=== PATIENT | male | born 1945 | race Hispanic/Latino ===

== ENCOUNTER 2018-01-19 10:17 | Outpatient (CLI) | payer MEDICARE, OTHER ==
[2018-01-19 10:53] LABS: Anion Gap 11 mmol/L (10-20); BUN (Urea Nitrogen) 20 mg/dL (8.4-25.7); Calc. Creatinine Clearance 0 mL/min (70-130); Calcium 9.3 mg/dL (7.8-10.44); Carbon Dioxide 25 mmol/L (23-31); Chloride 107 mmol/L (98-107); Cholesterol 172 mg/dl (< 200 Desired); Estimated GFR-MDRD 64; Glucose 82 mg/dL (83-110); HDL Cholesterol 43 mg/dL (>60 Neg Risk); LDL Cholesterol, Calculated 114 mg/dL; Potassium 5.2 mmol/L (3.5-5.1); Sodium 138 mmol/L (136-145); Triglycerides 76 mg/dL (Less than 150)
== END 2018-01-19 10:18 | disposition home or self-care (01) ==
LOC: MADLAB 10:17
PROVIDERS: ATTEND Specialist
DX: I10 Essential (primary) hypertension (principal)
CPT/HCPCS: 36415; 80048; 80061

== ENCOUNTER 2018-07-04 08:03 | Outpatient (CLI) | payer MEDICARE, OTHER ==
--- NOTE | 2018-07-04 10:21 | ULT ---
SCROTAL ULTRASOUND WITH VASCULAR DUPLEX AND COLOR AND SPECTRAL DOPPLER IMAGING: HISTORY: A 73-year-old male with a history of scrotal pain and swelling for 6 weeks. FINDINGS: The right testis measures 4.5 x 2.9 x 3.3 cm. The left testis measures 2.4 x 2.8 x 3.0 cm. Right epididymis is borderline size and contains a 0.5 cm epididymal cyst. The left epididymis is within normal limits and contains a 0.4 cm small epididym al cyst. There are bilateral hydroceles greater on the left side. There is a small focus of altered echogenicity within the right testis containing some decreased echogenicity as well as some increase d echogenicity, the etiology of this is uncertain. This could possibly be related to residual from a n old injury or an area of prior infection. This does not have the appearance of an intratesticular mass. Vascular duplex demonstrates arterial inflow and venous outflow to both testes. No evidence for test icular torsion. IMPRESSION: Bilateral hydroceles, greater on the left side. Small epididymal cyst. No evidence for testicular t orsion. POS: POON[facility]
== END 2018-07-04 08:04 | disposition home or self-care (01) ==
LOC: MADULT 08:03
PROVIDERS: ATTEND Family Medicine
DX: N50.82 Scrotal pain (principal); N50.89 Other specified disorders of the male genital organs; N43.3 Hydrocele, unspecified; N50.3 Cyst of epididymis
CPT/HCPCS: 76870

== ENCOUNTER 2020-05-31 17:52 | Emergency (ER) | payer MEDICARE, OTHER ==
[2020-05-31] MEDS ORDERED: Furosemide 40 MG/4 ML VIAL ONE (18:08)
[2020-05-31 18:19] LABS: #Basophils 0.1 thou/uL (0.0-0.2); #Eosinphils 0.1 thou/uL (0.0-0.7); #Lymphocytes 2.7 thou/uL (1.20-3.40); #Monocytes 0.7 thou/uL (0.11-0.59); %Basophils 1.2 % (0.0-1.0); %Eosinophils 1.5 % (0.0-10.0); %Monocytes 8.6 % (0.0-10.0); %Neutrophils 57.8 % (42.0-75.0); Hemoglobin 13.3 g/dL (14.0-18.0); Mean Corpuscular HGB CONC 32.3 g/dL (32.0-36.0); Mean Corpuscular Hemoglobin 30.3 pg (27.0-31.0); Mean Corpuscular Volume 93.8 fL (78.0-98.0); Mean Platelet Volume 8.2 fL (7.4-10.4); Platelet Count 196 thou/uL (130-400); RBC Distribution Width 12.9 % (11.5-14.5); Red Blood Cell (RBC) Count 4.41 mill/uL (4.70-6.10); White Blood Cell (WBC) Count 8.6 thou/uL (4.8-10.8)
[2020-05-31 18:26] LABS: PTT 30.9 sec (22.9-36.1); Prothrombin Time 13.5 sec (12.0-14.7)
[2020-05-31] MEDS ORDERED: methylPREDNISolone Sod Succ/PF 125 MG/2 ML VIAL ONE (18:30)
[2020-05-31] MEDS ORDERED: Vancomycin HCl 750 MG VIAL ONE ×2 (18:30→18:31)
[2020-05-31] MEDS ORDERED: Sodium Chloride 0.9% 250 ML 250 ML ONE ×2 (18:31→18:49)
[2020-05-31 18:36] LABS: ALT (SGPT) 40 U/L (8-55); AST (SGOT) 77 U/L (5-34); Albumin 4.1 g/dL (3.4-4.8); Alkaline Phosphatase 51 U/L (40-110); Anion Gap 18 mmol/L (10-20); BUN (Urea Nitrogen) 18 mg/dL (8.4-25.7); Bilirubin, Total 0.7 mg/dL (0.2-1.2); CK (CPK) 197 U/L (30-200); Calc. Creatinine Clearance 0 mL/min (70-130); Calcium 8.9 mg/dL (7.8-10.44); Carbon Dioxide 23 mmol/L (23-31); Chloride 108 mmol/L (98-107); Estimated GFR-MDRD 63; Globulin 3.3 g/dL (2.4-3.5); Glucose 87 mg/dL (83-110); Potassium 4.6 mmol/L (3.5-5.1); Protein, Total 7.4 g/dL (5.8-8.1); Sodium 144 mmol/L (136-145)
--- NOTE | 2020-05-31 18:38 | RAD ---
CHEST ONE VIEW: 05/31/20 INDICATION: Dyspnea. COMPARISON: Prior chest two views dated 02/25/20. FINDINGS: There is cardiomegaly with mild pulmonary vascular congestion. Mild scarring in the left lung base is stable. Midline sternotomy changes are stable appearing. There are very tiny pleural effusions. No p neumothorax is evident. IMPRESSION: Cardiomegaly and mild pulmonary vascular congestion, small bilateral pleural effusions. Recommend cor relation for volume overload or CHF. POS: BH
== END 2020-05-31 21:40 | disposition short-term general hospital (02) ==
LOC: MADERS 17:52
DX: J44.1 Chronic obstructive pulmonary disease with (acute) exacerbation (principal); I11.0 Hypertensive heart disease with heart failure; I50.9 Heart failure, unspecified; D64.9 Anemia, unspecified; Z87.891 Personal history of nicotine dependence; Z85.72 Personal history of non-Hodgkin lymphomas; Z79.899 Other long term (current) drug therapy
CPT/HCPCS: 71045; 80053; 82550; 83880; 84484; 85025; 85610; 85730; 93005; 94760; 96374; 96375; J1940; J1956; J2930; J3370; J7050; J7620